=== PATIENT | male | born 1980 | race Two or more races ===

== ENCOUNTER → 2019-04-30 | Outpatient (CLI) | payer BC, OTHER ==
--- NOTE | 2019-04-30 13:52 | RAD ---
CT MAXILLOFACIAL WO CONTRAST DATE: 04/30/2019 11:30 AM INDICATION: Sinusitis, history of left maxillary sinus perforation during dental work. COMPARISON: None. TECHNIQUE: CT images of the maxillofacial structures were obtained without intravenous contrast. Coronal and sagittal reformatted images were performed at a separate workstation and reviewed. One or more of the following dose reduction techniques were utilized: Automated exposure control (AEC), Adjustment of mA and/or kV according to patient size, Use of iterative reconstruction technique such as ASiR, CT scan done according to ALARA and image gently/image wisely FINDINGS: Defect in the floor of the left maxillary sinus consistent with patient's history of iatrogenic perforation. Significant left maxillary sinus mucosal thickening, with obstruction of the maxillary ostium. Left maxillary sinus air-fluid level. Ethmoid, sphenoid, and right maxillary sinuses are clear. Nasal septum is deviated to the left with a spur. Left middle turbinate is slightly hypoplastic and displaced superiorly. Right ostiomeatal complex is patent. The visualized osseous structures are otherwise normal. The visualized orbits and globes are normal. The brain is poorly evaluated due to technique. IMPRESSION: Significant mucosal thickening in the left maxillary sinus with obstruction of the maxillary ostium. Left maxillary sinus air-fluid level, which may represent acute sinusitis. Defect in the floor of the left maxillary sinus consistent with patient's history of iatrogenic perforation. Electronically signed by: Rishi Garcia MD (04/30/2019 1:49 PM) [id number]
== END | disposition home or self-care (01) ==
LOC: CT 10:46
PROVIDERS: ATTEND Family Medicine
DX: J34.2 Deviated nasal septum (principal); J34.89 Other specified disorders of nose and nasal sinuses; Z79.899 Other long term (current) drug therapy; F17.200 Nicotine dependence, unspecified, uncomplicated
CPT/HCPCS: 70486

== ENCOUNTER → 2019-10-01 | Outpatient (CLI) | payer OTHER ==
[~2019-10-01] MED LIST: BUPIVACAINE MPF 0.25% 10 ML VIAL. ONE; LIDOCAINE 1% PF 30 ML VIAL. ONE; VIT1TABL65 PO; methylPREDNISolone ACETATE 40 MG/ML VIAL. ONE
[2019-10-01 13:11] VITALS: BP 136/85
== END | disposition home or self-care (01) ==
LOC: SURG 11:46
PROVIDERS: ATTEND Anesthesiology
DX: M25.512 Pain in left shoulder (principal); G89.29 Other chronic pain; M75.52 Bursitis of left shoulder; M51.16 Intervertebral disc disorders with radiculopathy, lumbar region; F32.9 Major depressive disorder, single episode, unspecified; Z79.899 Other long term (current) drug therapy
CPT/HCPCS: 20610; 77002; J1030; J2001; J3490; 64483; 64484

== ENCOUNTER → 2019-11-10 | Outpatient (CLI) | payer OTHER ==
[2019-10-01 13:11] VITALS: BP 136/85
[~2019-11-10] MED LIST changes: -BUPIVACAINE MPF 0.25% 10 ML VIAL. ONE; -LIDOCAINE 1% PF 30 ML VIAL. ONE; -methylPREDNISolone ACETATE 40 MG/ML VIAL. ONE
--- NOTE | 2019-11-11 08:27 | RAD ---
Views each knee 11/10/2019 12:00 AM Indication: Reason: BILAT KNEE PAIN / Spl. 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 Chronic fracture is considered less likely. Correlate with clinical history. There is otherwise no evidence of fracture or dislocation. Articular surfaces are uninterrupted. No acute soft tissue changes are seen. Joint spaces are preserved. Impression: 1. 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 Correlate with clinical history. 2. No acute osseous abnormality is seen Electronically signed by: Bryant Márquez MD (11/11/2019 8:25 AM) [id number]
== END | disposition home or self-care (01) ==
LOC: RAD 14:32
PROVIDERS: ATTEND Physician Assistant
DX: M25.561 Pain in right knee (principal); M25.562 Pain in left knee
CPT/HCPCS: 73562